=== PATIENT | female | born 2000 | race American Indian/Alaskan Native ===

== ENCOUNTER 2020-07-19 13:05 | Emergency (ER) | payer OTHER | END 2020-07-19 14:39 | disposition left against medical advice (07) | LOC: ED 13:05 | DX: M79.672 Pain in left foot (principal); Z53.21 Procedure and treatment not carried out due to patient leaving prior to being seen by health care provider ==

== ENCOUNTER 2021-08-28 11:15 | Inpatient (IN) | payer OTHER ==
[2021-08-28] MEDS ORDERED: LIDOCAINE (2%) 20 MG/1 ML VIAL 20 ML MDV INFILTRATI ONE (11:34)
[2021-08-28] MEDS ORDERED: OXYTOCIN DRIP 30,000 MILLIUNITS/500 ML BAG IV ONE (12:08)
[2021-08-28] MEDS ORDERED: WITCH HAZEL/ GLYCERIN PAD TP PRN (12:18)
[2021-08-28] MEDS ORDERED: ONDANSETRON 4 MG/2 ML INJ IV PRN (12:18)
[2021-08-28] MEDS ORDERED: PROMETHAZINE 25 MG TAB PO PRN (12:18)
[2021-08-28] MEDS ORDERED: MAGNESIUM HYDROXIDE (MOM) ORAL LIQD UDC PO PRN (12:18)
[2021-08-28] MEDS ORDERED: LANOLIN/ZINC/DIMETHICONE (LANSINOH) 7 GM TP PRN (12:18)
[2021-08-28] MEDS ORDERED: ACETAMINOPHEN 325 MG TAB PO PRN (12:18)
[2021-08-28] MEDS ORDERED: diphenhydrAMINE 25 MG CAP PO PRN (12:18)
--- NOTE | 2021-08-28 12:26 | Procedure Note ---
OB Delivery Note - Delivery Date of Delivery: 08/28/21 (1127) Surgeon: HALIMA OLIVO (CNM) Estimated blood loss: <100cc - Vaginal Delivery presentation: vertex Delivery position: OA Delivery induction: none Delivery augmentation: rupture of membranes (unknown time) Delivery monitor: external uterine, internal FHT Route of delivery: Delivery placenta: spontaneous (1210) Delivery cord: nuchal cord (nuchal and body x 1, reduced at perineum), 3 umbil ical vessels Episiotomy: none Delivery laceration: none Anesthesia: none Delivery comments: Received call that pt [facility] and had a prescipitous delivery of a viable, crying male infant placed directly to maternal abdomen. Cord was double clamped and cut by FOB. Cord blood collected, sent to lab. Placenta spontaneously delivered, disposed per hospital policy. Uterus firm @ U-3, hemostatsis maintained. Mother and baby safe,stable and left in care of RN. - A at 1 minute: 8 at 5 minutes: 9 Gender: Male (Wt: 7lbs 5ozs, 19 inches)
--- NOTE | 2021-08-28 12:32 | History and Physical Report ---
History of Present Illness Date of examination: 08/28/21 Date of admission: 08/28/21 11:16 Chief complaint: History of present illness: 21 yo, @ 38.6 wks, initiated care with [place] [facility] at 11.2 wks gestation. has been complicated by anemia, history of Pre-eclampsia and close interval pregnancies. Presents to [facility] and precipitously delivered a viable male in triage dept. Labs: O+, antibody negative; PAP normal; rubella immune; VDRL negative; urine culture negative; HBsAg negative; HIV negative; HSV2 negative; GC/Chlamydia/Trich negative; 1 hr gtt 110; MSAFP/Multiple markers negative; GBS negative. Past History Past Medical History: other (anemia; pre-eclampsia) Past Surgical History: no surgical history Family/Genetic History: diabetes, hypertension, cancer (cervical) Social history: single, lives with family, full code. denies: smoking, alcohol abuse, prescription drug abuse, IV drug use - Obstetrical History Expected Date of Delivery: 09/05/21 Actual Gestation: 38 Week(s) 6 Day(s) : 2 Para: 1 Hx # Term Pregnancies: 1 Number of Pregnancies: 0 Spontaneous Abortions: 0 Induced : 0 Number of Living Children: 1 #1 Infant Gender: Male year: 2,[birth year] Birthweight: 3.175 kg Gestational age at delivery: 40 Complications: none Medications and Allergies Allergies Allergy/AdvReac Type Severity Reaction Status Date / Time No Known Allergies Allergy Unverified 04/15/20 11:02 Home Medications Medication Instructions Recorded Confirmed Last Taken Type Docusate Sodium [Colace] 100 mg PO BID PRN #60 capsule 04/19/20 Unknown Rx Ferrous Sulfate [Feosol 325 MG tab] 325 mg PO BID #60 tablet 04/19/20 Unknown Rx Ibuprofen [Motrin 800 MG tab] 800 mg PO TID PRN #30 tablet 04/19/20 Unknown Rx Lidocain2.5%/Prilocai2.5% [Emla] 5 gm TP PRN #1 tube 04/19/20 Unknown Rx labetaloL [Labetalol 100mg TAB] 100 mg PO BID #60 tablet 04/19/20 Unknown Rx Active Meds: Active Medications Acetaminophen (Acetaminophen 325 Mg Tab) 650 mg PO Q4H PRN PRN Reason: Pain MILD(1-3)/Fever >100.5/FLYNN Bisacodyl (Bisacodyl 10 Mg Rect Supp) 10 mg TX BID PRN PRN Reason: Constipation Diphenhydramine HCl (Diphenhydramine 25 Mg Cap) 25 mg PO Q6H PRN PRN Reason: Itching Ibuprofen (Ibuprofen 600 Mg Tab) 600 mg PO Q6H CARMEN Magnesium Hydroxide (Magnesium Hydroxide (Mom) Oral Liqd Udc) 30 ml PO HS PRN PRN Reason: Constipation Multi-Ingredient Ointment (Lanolin/Zinc/Dimethicone (Lansinoh) 7 Gm) 1 applic TP PRN PRN PRN Reason: Sore Nipples Multivitamins/Iron/Calcium ( [id number]-Tw Fumarate-Folic Acid Vit Tab) 1 each PO QDAY CARMEN Ondansetron HCl (Ondansetron 4 Mg/2 Ml Inj) 4 mg IV Q8H PRN PRN Reason: Nausea And Vomiting Oxycodone/Acetaminophen (Oxycodone /Acetaminophen 5-325mg Tab) 1 tab PO Q6H PRN PRN Reason: Pain, Moderate (4-6) Promethazine HCl (Promethazine 25 Mg Tab) 25 mg PO Q6H PRN PRN Reason: Nausea And Vomiting Sodium Chloride (Sodium Chloride 0.9% 10 Ml Flush Syringe) 10 ml IV PRN NR Witch Stefanie/Glycerin (Witch Stefanie/ Glycerin Pad) 1 each TP PRN PRN PRN Reason: Hemorrhoid/cleansing/soothing - Vital Signs Vital signs: Vital Signs Pulse BP 104 H 131/72 08/28/21 11:30 08/28/21 11:30 Temp Pulse Resp BP Pulse Ox 85 134/72 100 08/28/21 11:38 08/28/21 11:37 08/28/21 11:38 - Physical Exam Breasts: Positive: normal Cardiovascular: Regular rate Lungs: Positive: Normal air movement Abdomen: Positive: soft Genitourinary (Female): Positive: normal external genitalia, normal perenium, other (small perineal abrasion) Vagina: Positive: normal moisture Uterus: Positive: other (U-3) Extremities: Positive: normal Deep Tendon Reflex Grade: Normal +2 Results All other labs normal. Assessment and Plan - Patient Problems (1) (normal spontaneous vaginal delivery) Current Visit: Yes Status: Acute Plan to address problem: Transfer to M/B Pain meds as desired per orders Anticipate d/c home in 24-48 hrs if stable
[2021-08-28] MEDS: IBUPROFEN 600 MG TAB PO SCH ×2 (12:59→18:46)
[2021-08-28] MEDS: oxyCODONE /ACETAMINOPHEN 5-325MG TAB PO PRN (22:57)
[2021-08-29 00:43] LABS: Hematocrit 30.7 % (30.3-42.9); Hemoglobin 9.6 gm/dl (10.1-14.3)
[2021-08-29] MEDS: IBUPROFEN 600 MG TAB PO SCH ×2 (04:02→16:06)
[2021-08-29] MEDS ORDERED: PRENATAL VIT27-FE FUMARATE-FOLIC ACID VIT TAB PO SCH (10:00)
[2021-08-29] MEDS: oxyCODONE /ACETAMINOPHEN 5-325MG TAB PO PRN (10:05)
--- NOTE | 2021-08-29 12:46 | Discharge Summary ---
Providers - Providers Date of Admission: 08/28/21 11:16 Date of discharge: 08/29/21 (1500) Attending physician: TIMBO HERNANDEZ 08/28/21 12:19 Consult to Licensed Club Manager [CONS] Routine Reason For Exam: assistance with , SNS Primary care physician: TIMBO HERNANDEZ Hospitalization Reason for admission: active labor Delivery: Episiotomy: none Laceration: none Other procedures: none complications: none Discharge diagnosis: IUP at term delivered, other (anemia) baby: male Hospital course: 21 yo, @ 38.6 wks, initiated care with [place] [facility] at 11.2 wks gestation. has been complicated by anemia, history of Pre-eclampsia and close interval pregnancies. Presents to [facility] and precipitously delivered a viable male in triage dept. Labs: O+, antibody negative; PAP normal; rubella immune; VDRL negative; urine culture negative; HBsAg negative; HIV negative; HSV2 negative; GC/Chlamydia/Trich negative; 1 hr gtt 110; MSAFP/Multiple markers negative; GBS negative. Precipitous delivery of viable male . PP course has been uncomplicated. Condition at discharge: Good Disposition: 01 HOME / SELF CARE / HOMELESS - Discharge Diagnoses (1) (normal spontaneous vaginal delivery) Status: Acute (2) Anemia complicating the puerperium Status: Acute Comment: Asymptomatic Increase iron rich foods into diet Plan - Discharge Medications Prescriptions: Ibuprofen [Motrin 600 MG tab] 800 mg PO Q8H 7 Days #21 tablet - Provider Discharge Summary Activity: routine, no sex for 6 weeks, no heavy lifting 4 weeks, no strenuous exercise Diet: other (Iron rich diet) Instructions: routine Additional instructions: [] Smoking cessation referral if applicable(refer to patient education folder for contact #) [] Refer to [facility] Booklet Call your doctor immediately for: * Fever > 100.5 * Heavy vaginal bleeding ( >1 pad per hour) * Severe persistent headache * Shortness of breath * Reddened, hot, painful area to leg or breast - Follow up plan Follow up: TIMBO HERNANDEZ MD [Primary Care Provider] - 6 Weeks Forms: [facility] Discharge Summary
[2021-08-29 18:06] VITALS: BP 127/82
== END 2021-08-29 18:00 | disposition home or self-care (01) | DRG 775 ==
LOC: LD 11:15 → TRG 11:15 → LD 11:16 → TRG 11:16 → APU 11:16 → LD 11:50 → APU 11:50 → TRG 11:55 → LD 11:55 → UNDOADMIN 11:55 → APU 11:55 → LD 12:05 → TRG 12:05 → OB 13:36
PROVIDERS: ADMIT Obstetrics & Gynecology; ATTEND Obstetrics & Gynecology
PROC: 10E0XZZ Delivery of Products of Conception, External Approach (ICD-10-PCS; principal; 2021-08-28)
DX: O69.81X0 Labor and delivery complicated by cord around neck, without compression, not applicable or unspecified (principal); Z3A.38 38 weeks gestation of pregnancy; Z37.0 Single live birth; O90.81 Anemia of the puerperium; Z20.822 Contact with and (suspected) exposure to COVID-19
CPT/HCPCS: 36415; 85014; 85018; 99211; G0378; G0463; U0003